=== PATIENT | female | born 1950 | race Two or more races ===

== ENCOUNTER 2021-12-13 12:39 | Outpatient (RCR) | payer MEDICARE, SELFPAY | END 2022-04-12 14:13 | disposition home or self-care (01) | LOC: HO.WCC 12:39 | PROVIDERS: Visit Provider Surgery | DX: E11.621 Type 2 diabetes mellitus with foot ulcer (principal); E11.51 Type 2 diabetes mellitus with diabetic peripheral angiopathy without gangrene; L97.421 Non-pressure chronic ulcer of left heel and midfoot limited to breakdown of skin; F03.90 Unspecified dementia, unspecified severity, without behavioral disturbance, psychotic disturbance, mood disturbance, and anxiety | CPT/HCPCS: 11042; 17250; 97597; 99212 ==